=== PATIENT | male | born 1955 | race Caucasian/White ===

== ENCOUNTER 2019-12-07 14:55 | Outpatient (CLI) | payer MEDICARE, SELFPAY ==
--- NOTE | ~2019-12-07 | XR_ITS ---
EXAMINATION: XR abdomen obstructive series EXAM DATE: 12/07/2019 15:28 INDICATION: Left-sided abdominal pain. TECHNIQUE: Frontal upright projection of the upper abdomen, frontal projection of the lower abdomen f or interpretation. Comparison is made to prior examination from 07/07/2018. FINDINGS: There is expected amount of colonic stool and gas. No small bowel dilation, nonobstructiv e bowel gas pattern. There are no suspicious calcifications identified. There is no organomegaly suspected. The bones are unremarkable. There is no free intraperitoneal air. The lung bases are clear. IMPRESSION: Unremarkable abdomen x-ray exam. Reviewed, dictated and finalized at location A.
== END 2019-12-07 14:56 | disposition home or self-care (01) ==
LOC: ANHIMG 15:07
PROVIDERS: PCP Family Medicine; Visit Provider Family Medicine
DX: R10.9 Unspecified abdominal pain (principal)
CPT/HCPCS: 74019

== ENCOUNTER 2019-12-14 08:24 | Outpatient (CLI) | payer MEDICARE, SELFPAY ==
--- NOTE | ~2019-12-14 | CT_ITS ---
EXAMINATION: CT abdomen pelvis w con DATE: 12/14/2019 08:53 INDICATION: Left abdominal pain. TECHNIQUE: Computed tomography (CT) of the abdomen and pelvis was performed with 100 mL Omnipaque 350 intravenous contrast. Automated exposure control and iterative reconstruction technique were employe d. The dose-length product was 277.82 mGy-cm. COMPARISON: None. FINDINGS: The visualized portions of the lung bases demonstrate mild atelectasis. No pleural effusion . The heart size is normal. No pericardial effusion. There is a small sliding hiatal hernia. The live r, gallbladder, spleen, pancreas, adrenal glands, and kidneys are normal. There is a small left ingui nal hernia containing fat. There are no dilated loops of bowel. The appendix is normal. There are no pathologically enlarged lymph nodes. There is no free intraperitoneal fluid. There is moderate lower lumbar spondylosis. IMPRESSION: 1. Small left inguinal hernia containing fat. 2. Small sliding hiatal hernia. Reviewed, dictated and finalized at location A.
[2019-12-14 08:46] LABS: Estimated Glomerular Filt Rate > 60
== END 2019-12-14 08:25 | disposition home or self-care (01) ==
PROVIDERS: PCP Family Medicine; Visit Provider Physician Assistant
DX: R10.9 Unspecified abdominal pain (principal); K40.90 Unilateral inguinal hernia, without obstruction or gangrene, not specified as recurrent; K44.9 Diaphragmatic hernia without obstruction or gangrene
CPT/HCPCS: 36415; 74177; Q9967

== ENCOUNTER → 2021-10-28 10:21 | Outpatient (CLI) | payer MEDICARE, SELFPAY ==
--- NOTE | ~2021-10-28 | XR_ITS ---
XR knee RT 3V 10/28/2021 10:46 Indication: Right knee pain Procedure: 3 views right knee Comparison: No prior studies for comparison. Findings: There are loose bodies overlying the joint space, likely degenerative. There is mild osteoa rthritis. No acute fracture or traumatic malalignment. Impression: 1: No acute fracture. Reviewed, dictated and finalized at location B. Impression: 1: No acute fracture.
== END ==
PROVIDERS: PCP Family Medicine; Visit Provider Nurse Practitioner Family
DX: M25.561 Pain in right knee (principal)
CPT/HCPCS: 73562

== ENCOUNTER → 2022-08-27 15:17 | Outpatient (CLI) | payer MEDICARE, SELFPAY ==
--- NOTE | ~2022-08-27 | XR_ITS ---
EXAMINATION: XR hip LT 2V w AP pelvis DATE: 08/27/2022 15:42 INDICATION: Left hip pain. TECHNIQUE: An anteroposterior view of the pelvis and 2 views of left hip were obtained. COMPARISON: Left hip radiographs 03/28/2019 FINDINGS: Bone alignment is normal. No fracture. There is moderate osteoarthritis of the hips. There is at least mild lumbar spondylosis. IMPRESSION: 1. Moderate osteoarthritis of the hips. Reviewed, dictated and finalized at location E. ALT PAVING MACHINE OPERATOR
== END ==
PROVIDERS: PCP Family Medicine; Visit Provider Family Medicine
DX: M16.12 Unilateral primary osteoarthritis, left hip (principal)
CPT/HCPCS: 73502

== ENCOUNTER → 2022-10-22 10:52 | Outpatient (CLI) | payer MEDICARE, SELFPAY ==
--- NOTE | ~2022-10-22 | XR_ITS ---
EXAM: XR lumbar spine 2-3V DATE: 10/22/2022 11:14 HISTORY: M54.30 - Sciatica, unspecified side . COMPARISON: CT abdomen pelvis 12/05/2019. FINDINGS: 5 nonrib-bearing lumbar-type vertebral bodies. Pedicles intact. 4 mm retrolisthesis at L5- S1. Vertebral alignment otherwise preserved. Vertebral body heights preserved. Severe disc space narr owing at L5-S1 with vacuum phenomenon. Moderate disc space at L4-5. Right lateral bridging osteophyte between L2 and L3. Mild narrowing and marginal osteophytosis at multiple additional levels. Lower marixa mbar facet hypertrophy and sclerosis. No fracture or dislocation. IMPRESSION: Multilevel lumbar degenerative disc disease, severe at L5-S1. Grade 1 retrolisthesis at L 5-S1. Lower lumbar facet arthropathy. Reviewed, dictated and finalized at location K. FILLER IMPRESSION: Multilevel lumbar degenerative disc disease, severe at L5-S1. Grade 1 retrolisthesis at L5-S1. Lower lumbar facet arthropathy.
== END ==
PROVIDERS: PCP Family Medicine; Visit Provider Family Medicine
DX: M54.30 Sciatica, unspecified side (principal); M51.37 Other intervertebral disc degeneration, lumbosacral region
CPT/HCPCS: 72100

== ENCOUNTER 2023-02-19 06:48 | Outpatient (CLI) | payer MEDICARE, SELFPAY ==
--- NOTE | ~2023-02-19 | MR_ITS ---
MRI of the lumbar spine Clinical History: Sciatica Technique: Axial T2-weighted images, and sagittal T1-weighted, T2-weighted, and T2 fat-sat images wer e acquired. Findings: There is no fracture or subluxation of the lumbar spine. Vertebral bodies maintain normal h eight and alignment. No suspicious bone marrow signal abnormality seen. At L1-L2, there is minimal disc bulge and mild to moderate facet arthropathy. No central canal stenos is or neural foraminal narrowing. At L2-L3, there is minimal disc bulge with moderate facet arthropathy. No central canal stenosis or n eural foraminal narrowing. At L3-L4, there is probable minimal disc bulge. There is mild to moderate facet arthropathy. No centr al canal stenosis or neural foraminal narrowing. At L4-L5, there is disc bulge, most prominent at the right paracentral to right foraminal region, wit h tiny annular fissure. There is mild to moderate facet arthropathy. No central canal stenosis. There is moderate right neural foraminal narrowing. Left neural foramen preserved. At L5-S1, there is mild disc bulge with mild facet arthropathy. No central canal stenosis. There is m oderate to advanced left neural foraminal narrowing, and severe right neural foraminal narrowing. Paravertebral soft tissues are unremarkable. Impression: No fracture or dislocation. Moderate degenerative spondylosis at L4-L5 and L5-S1, as detailed above. Reviewed, dictated and finalized at [facility]. Impression: No fracture or dislocation. Moderate degenerative spondylosis at L4-L5 and L5-S1, as detailed above.
== END 2023-02-19 06:49 | disposition home or self-care (01) ==
PROVIDERS: PCP Family Medicine; Visit Provider Family Medicine
DX: M54.30 Sciatica, unspecified side (principal); M47.896 Other spondylosis, lumbar region; M47.897 Other spondylosis, lumbosacral region
CPT/HCPCS: 72148

== ENCOUNTER 2025-07-27 01:29 | Day surgery (SDC) | payer MEDICARE, SELFPAY ==
[2025-07-04 12:53] VITALS: BMI 23.4
--- OUTSIDE RECORDS SUMMARY | 2025-07-27 01:31 | XMS_ITS | Clinical Summary ---
Author Organization [facility] [place] [address] Address [address] [place] [address] Care Team Providers Care Maintenance Department Manager Name Role Phone Bertram Vasquez MD Primary Care Provider Allergies No known active allergies Medications amLODIPine (NORVASC) 5 mg tablet Take 5 mg by mouth daily 11/25/2021 Active hydroCHLOROthiaz misty (HYDRODIURIL) 25 mg tablet Take 25 mg by mouth daily 11/25/2021 Active lisinopriL (PRINIVIL,ZESTRI L) 10 mg tablet Take 10 mg by mouth daily 11/25/2021 Active aspirin 81 mg enteric coated tablet Take 81 mg by mouth daily Active Active Problems Problem Noted Date Diagnosed Date Hypertension 03/13/2011 Medical History Medical History Date Comments Personal history of other di seases of the circulatory system History of hypertension - (A dded by TW Conv) Hypertension Hiatal hernia Family History Medical History Relation Name Comments Cancer Other 1 Cancer - (Added by TW Conv) Arthritis Other 2 Gout Other 2 Hypertension Other 2 Hypertension - (Added by TW Conv) Relation Name Status Comments Other 1 Other 2 Social History Tobacco Use Types Packs/Day Years Used Date Smoking Tobacco: Former AUDIT-C Answer Date Recorded Q1: How often do you have a drink containing alc ohol? 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 Gender Identity Not on file Sexual Orientation Not on file Last Filed Vital Signs Vital Sign Reading Time Taken Comments Blood Pressure 132/75 12/20/2021 9:00 AM CDT Pulse 97 12/20/2021 9:00 AM CDT Temperature - - Respiratory Rate - - Oxygen Saturation - - Inhaled Oxygen Concentration - - Weight 72.6 kg (160 lb) 12/20/2021 9:00 AM CDT Height 171.5 cm (5' 7.5) 12/20/2021 9:00 AM CDT Body Mass Index 24.69 12/20/2021 9:00 AM CDT Plan of Treatment Not on file Insurance MEDICARE [facility] MEDICARE [employer] Care Teams Maintenance Department Manager Relationship Specialty Start Date End Date Bertram Vasquez MD [address] [facility] [address] [place] [address] PCP - General Family Medicine 12/12/19
[2025-07-27 06:18] VITALS: BP 129/68; PULSE 91; RESP 16; TEMP 36.6; O2SAT 100; BMI 23.5
[2025-07-27] MEDS: LACTATED RINGERS 1,000 ML 150 ML IV CONT (06:28)
--- NOTE | 2025-07-27 07:12 | PM.IMHP2 ---
H&P: HPI History of Present Illness Date/Time: 07/27/25 07:12 Chief Complaint: Screening colonoscopy Narrative: This is the patient's 2nd screening colonoscopy. In 2014 the patient had a small rectal polyp, hyperplastic. There are no GI symptoms and there is no family history of colorectal cancer. Review of Systems Review of Systems: All systems reviewed & are unremarkable except as noted in HPI and below PMFSH Past Medical History Medical History (Updated 07/27/25 @ 07:13 by Omari Pagan MD) Elevated cholesterol HTN (hypertension) Family History Family History Father Family history of pancreatic cancer Hypertension Mother Hypertension Family history of thyroid problem Other Heart disease Cancer Hypertension Other Carcinoma of colon Social History Social History Smoking packs per day: 0.5 Smoking cigarettes per day: 10.0 Years smoked: 2 Smoking pack-years: 1.00 Smoking status: Former smoker Tobacco type: cigarettes Second hand tobacco smoke exposure: No Smoking end date: 08/17/83 Alcohol intake: current Alcohol use details: rarely Substance use: never Substance use type: does not use Living arrangements: with family Occupation/Education: retired Gender identity (if verbalized by the patient): Male Spiritual care concerns: No Meds Home Medications and Allergies Home Medications ?Medication ?Instructions ?Recorded ?Confirmed ?Type aspirin 81 mg tablet,delayed 81 mg PO DAILY 08/25/19 07/27/25 History release lorazepam 0.5 mg tablet (Ativan) See Rx Instructions .Route 02/13/23 07/04/25 Rx .COMPLEX #2 tabs amlodipine 5 mg tablet 5 mg PO DAILY #90 tabs 02/07/25 07/27/25 Rx hydrochlorothiazide 25 mg tablet 25 mg PO DAILY #90 tabs 02/07/25 07/27/25 Rx lisinopril 10 mg tablet 10 mg PO DAILY #90 tabs 02/07/25 07/27/25 Rx ondansetron 4 mg disintegrating 4 mg PO Q6H PRN nausea and 04/19/25 07/04/25 Rx tablet vomiting #10 tabs latanoprost 0.005 % eye drops 1 drp EACH EYE DAILY 07/04/25 07/27/25 History Allergies Allergy/AdvReac Type Severity Reaction Status Date / Time No Known Allergies Allergy Mild Verified 07/27/25 06:16 Vital Signs Vital Signs - 24 hr 07/27/25 06:18 Temperature 97.8 F Pulse Rate 91 Respiratory Rate 16 Blood Pressure 129/68 Pulse Oximetry 100 Oxygen Delivery Room Air Exam Const: General: cooperative and healthy appearing Resp: Effort & Inspection: normal respiratory effort and able to speak in complete sentences Auscultation: clear to auscultation bilaterally Cardio: Rate: regular rate Rhythm: regular rhythm GI: Inspection: normal to inspection GI Palp: No No hepatosplenomegaly present Auscultation: normal bowel sounds Rectal Exam: deferred Skin: General skin exam: normal color Psych: Appearance: grossly normal Mental Status: mental status grossly normal Assessment and Plan Assessment and plan (1) Encounter for screening colonoscopy: Code(s): Z12.11 - Encounter for screening for malignant neoplasm of colon Status: Acute Assessment and Plan: The patient is deemed a good candidate for the procedure. Consent signed. Will proceed. Prior Studies I have reviewed the following patient records and this information was taken into consideration when formulating the assessment and plan.: previous labs, previous ER visits, previous hospitalizations and previous clinic visits
--- NOTE | 2025-07-27 07:28 | WPDANESEPPF ---
Anes - Initial Pre Proc Eval Procedure: Operation Date: 07/27/25 07:30 Proposed Procedures p Screening Colonoscopy - Omari Pagan MD Date/Time: 07/27/25 07:28 Surgeon: Omari Pagan MD Pre Op Diagnosis: Personal history of colon polyps, unspecified Patient Data Age: 70 Gender: M Height: 1.73 m Weight: 70.1 kg Last Vital Signs Temp 97.8 F 07/27/25 06:18 Pulse 91 07/27/25 06:18 Resp 16 07/27/25 06:18 BP 129/68 07/27/25 06:18 Pulse Ox 100 07/27/25 06:18 O2 Del Method Room Air 07/27/25 06:18 Allergies Allergy/AdvReac Type Severity Reaction Status Date / Time No Known Allergies Allergy Mild Verified 07/27/25 06:16 Home Medications ?Medication ?Instructions ?Recorded ?Confirmed ?Type aspirin 81 mg tablet,delayed 81 mg PO DAILY 08/25/19 07/27/25 History release lorazepam 0.5 mg tablet (Ativan) See Rx Instructions .Route 02/13/23 07/04/25 Rx .COMPLEX #2 tabs amlodipine 5 mg tablet 5 mg PO DAILY #90 tabs 02/07/25 07/27/25 Rx hydrochlorothiazide 25 mg tablet 25 mg PO DAILY #90 tabs 02/07/25 07/27/25 Rx lisinopril 10 mg tablet 10 mg PO DAILY #90 tabs 02/07/25 07/27/25 Rx ondansetron 4 mg disintegrating 4 mg PO Q6H PRN nausea and 04/19/25 07/04/25 Rx tablet vomiting #10 tabs latanoprost 0.005 % eye drops 1 drp EACH EYE DAILY 07/04/25 07/27/25 History Patient hx anesthesia problems: none Family hx anesthesia problems: none Results Review: All pre-operative results and documents have been reviewed as part of the pre-operative evaluation. [facility] Past Medical History Medical History (Updated 07/27/25 @ 07:13 by Omari Pagan MD) Elevated cholesterol HTN (hypertension) Family History Family History Father Family history of pancreatic cancer Hypertension Mother Hypertension Family history of thyroid problem Other Heart disease Cancer Hypertension Other Carcinoma of colon Social History Social History Smoking packs per day: 0.5 Smoking cigarettes per day: 10.0 Years smoked: 2 Smoking pack-years: 1.00 Smoking status: Former smoker Tobacco type: cigarettes Second hand tobacco smoke exposure: No Smoking end date: 08/17/83 Alcohol intake: current Alcohol use details: rarely Substance use: never Substance use type: does not use Living arrangements: with family Occupation/Education: retired Gender identity (if verbalized by the patient): Male Spiritual care concerns: No Anes - Eval Final PreProcedure Day of Procedure 07/27/25 07:28 Patient weight: normal Heart: regular rate and rhythm Lungs: clear to auscultation Airway: Mallampati scale class II Neurological: alert and oriented Last oral intake: >/= 8 hours ASA classification: II Emergent: no Anesthetic plan: proceed Anesthesia type and monitoring: general GIVS and standard monitoring Results Review: All pre-operative results and documents have been reviewed as part of the pre-operative evaluation. Informed Consent: The patient's anesthetic plan and its attendant risks and benefits were discussed with the patient/family/POA. Questions were solicited and answers provided to the satisfaction of the patient/family/POA.
[2025-07-27 07:44] VITALS: BP 114/76; PULSE 78; RESP 22; O2SAT 98
[2025-07-27 07:54] VITALS: BP 107/70; PULSE 66; RESP 18; O2SAT 99
[2025-07-27 08:04] VITALS: BP 118/72; PULSE 64; RESP 18; O2SAT 100
[2025-07-27] MEDS: DICLOFENAC SODIUM 0.1% OPHTH SOLN 2.5 ML BOTTLE 1 DROP EACH EYE (08:12)
[2025-07-27] MEDS: ARTIFICIAL TEARS OPHTH SOLN 15 ML BOTTLE 1 DROP EACH EYE (08:17)
[2025-07-27] MEDS: PROPARACAINE HCL 0.5% 15 ML OPHTH SOLN 1 DROP EACH EYE (08:17)
--- NOTE | 2025-07-27 08:26 | SUR.PHASEII ---
PT GIVEN EYE DROP PROTOCOL FOR REDDENED, WATERING, PAINFUL EYE. PT INSTRUCTED TO FOLLOW UP WITH EYE DOCTOR FOR FURTHER PROBLEMS, PT STATES EYE IS ALREADY FEELING BETTER.
== END 2025-07-27 08:27 | disposition home or self-care (01) ==
PROVIDERS: PCP Family Medicine; Referring Provider Physician Assistant; Visit Provider Internal Medicine Gastroenterology
PROC: 0DJD8ZZ Inspection of Lower Intestinal Tract, Via Natural or Artificial Opening Endoscopic (ICD-10-PCS; CPT 45378; principal; 2025-07-27 07:30)
DX: Z12.11 Encounter for screening for malignant neoplasm of colon (principal); Z86.0100 Personal history of colon polyps, unspecified; K64.8 Other hemorrhoids; I10 Essential (primary) hypertension; Z87.891 Personal history of nicotine dependence
CPT/HCPCS: G0105; A9270; J2003; J2704; J7120